=== PATIENT | female | born 1960 | race Caucasian/White ===

== ENCOUNTER → 2016-06-06 | Outpatient (CLI) | payer OTHER ==
[~2016-06-06] MED LIST: ISOVUE-370 76% 100ML VIAL (Q9967) As Ordered ONE
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
== END ==
LOC: M RAD 08:03
PROVIDERS: ATTEND Physician Assistant Medical
DX: M25.551 Pain in right hip (principal); S32.810A Multiple fractures of pelvis with stable disruption of pelvic ring, initial encounter for closed fracture; X58.XXXA Exposure to other specified factors, initial encounter; Y92.89 Other specified places as the place of occurrence of the external cause; Y93.89 Activity, other specified; Y99.8 Other external cause status
CPT/HCPCS: 72193; Q9967

== ENCOUNTER 2016-10-05 15:16 | Emergency (ER) | payer MEDICAID, OTHER ==
[~2016-10-05] VITALS: Ht 162.6 cm; Wt 90.7 kg
[2016-10-05 15:16] VITALS: BP 148/86
[2016-10-05] MEDS ORDERED: HYDR-3719 (15:24)
[2016-10-05] MEDS ORDERED: OMEP40CA2 (15:24)
[2016-10-05] MEDS ORDERED: LYRI150C (15:24)
[2016-10-05] MEDS ORDERED: ROPI2TAB (15:24)
[2016-10-05] MEDS ORDERED: VITA50003 (15:24)
[2016-10-05] MEDS ORDERED: MULT1CHW39 PO (15:24)
[2016-10-05] MEDS ORDERED: TIZANIDINE (15:24)
[2016-10-05] MEDS ORDERED: ALEN70TA39 (15:24)
--- NOTE | 2016-10-06 09:49 | REP ---
RIGHT RIBS, PA CHEST ONLY: HISTORY: Pain. COMPARISON RIB SERIES: None. Comparison frontal view of the chest 09/15/2015. The accompanying frontal view of the chest shows no acute disease or significant change from the prior exam. There is no evidence of a pneumothorax. Four views of the right ribs shows no evidence of an acute fracture or destructive osseous lesion. IMPRESSION: Negative right rib series. Signed by Deo Sheets DO 10/06/2016 11:36 A
== END 2016-10-05 16:42 | disposition home or self-care (01) ==
LOC: M ED 15:47
DX: S29.012A Strain of muscle and tendon of back wall of thorax, initial encounter (principal); X58.XXXA Exposure to other specified factors, initial encounter; Y92.89 Other specified places as the place of occurrence of the external cause; Y93.89 Activity, other specified; Y99.8 Other external cause status; G89.29 Other chronic pain; K21.9 Gastro-esophageal reflux disease without esophagitis; Z98.84 Bariatric surgery status; Z79.899 Other long term (current) drug therapy; Z88.0 Allergy status to penicillin; Z88.2 Allergy status to sulfonamides; Z88.8 Allergy status to other drugs, medicaments and biological substances; Z91.040 Latex allergy status

== ENCOUNTER 2016-11-07 12:19 | Emergency (ER) | payer OTHER ==
[~2016-11-07] VITALS: Ht 162.6 cm; Wt 95.3 kg
[~2016-11-07 12:19] MED LIST changes: +ALEN70TA39; +HYDR-3719; -ISOVUE-370 76% 100ML VIAL (Q9967) As Ordered ONE; +LYRI150C; +MULT1CHW39 PO; +OMEP40CA2; +ROPI2TAB; +TIZANIDINE; +VITA50003
[2016-11-07 13:46] VITALS: BP 149/94
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
== END 2016-11-07 13:59 | disposition home or self-care (01) ==
LOC: M ED 12:40
DX: S90.112A Contusion of left great toe without damage to nail, initial encounter (principal); W22.09XA Striking against other stationary object, initial encounter; Y92.019 Unspecified place in single-family (private) house as the place of occurrence of the external cause; Y93.01 Activity, walking, marching and hiking; Y99.9 Unspecified external cause status; F17.200 Nicotine dependence, unspecified, uncomplicated; G25.81 Restless legs syndrome; M79.7 Fibromyalgia; Z98.84 Bariatric surgery status; Z90.79 Acquired absence of other genital organ(s); Z79.899 Other long term (current) drug therapy; Z88.0 Allergy status to penicillin; Z88.2 Allergy status to sulfonamides; Z88.6 Allergy status to analgesic agent; Z91.040 Latex allergy status

== ENCOUNTER 2016-11-18 15:01 | Emergency (ER) | payer OTHER ==
[~2016-11-18] VITALS: Ht 162.6 cm; Wt 102.2 kg
[~2016-11-18 15:01] MED LIST changes: +VITA1CAP40; -VITA50003
[2016-11-18] MEDS ORDERED: MORPHINE 2 MG/ML 1ML SYRINGE IV ONE (16:15)
[2016-11-18 16:42] LABS: BASO % 0.7 % (0.0-1.0); EOS # 0.1 K/mm3 (0.0-0.50); EOS % 2.3 % (0.0-3.0); LARGE UNSTAINED CELL # 0.1 K/mm3 (0.0-0.4); LARGE UNSTAINED CELL % 1.6 % (0.0-4.0); LYMPH # 1.7 K/mm3 (1.5-4.5); LYMPH % 30.5 % (24.0-44.0); MEAN CORPUSCULAR HEMOGLOBIN 31.2 pg (27.0-33.0); MEAN CORPUSCULAR HGB CONC 34.2 g/dl (32.0-36.5); MONO # 0.4 K/mm3 (0.0-0.8); MONO % 6.2 % (0.0-5.0); NEUTROPHILS # 3.4 K/mm3 (1.8-7.7); NEUTROPHILS % 58.7 % (36.0-66.0); PLATELET COUNT, AUTOMATED 254 k/mm3 (150-450); RED CELL DISTRIBUTION WIDTH 13.6 % (11.5-14.5); WHITE BLOOD COUNT 5.7 K/mm3 (4.0-10.0)
[2016-11-18 17:07] LABS: ALBUMIN/GLOBULIN RATIO 1.33 (1.00-1.93); ALKALINE PHOSPHATASE 80 U/L (45-117); ALT/SGPT 64 U/L (12-78); ANION GAP 5 MEQ/L (8-16); AST/SGOT 37 U/L (15-37); BILIRUBIN,DIRECT < 0.1 MG/DL (0.0-0.2); BILIRUBIN,TOTAL 0.3 MG/DL (0.2-1.0); BLOOD UREA NITROGEN 15 MG/DL (7-18); CALCIUM LEVEL 8.5 MG/DL (8.5-10.1); CARBON DIOXIDE LEVEL 29 MEQ/L (21-32); CHLORIDE LEVEL 106 MEQ/L (98-107); CREATININE FOR GFR 0.82 MG/DL (0.55-1.02); GLOMERULAR FILTRATION RATE > 60.0 (>51); GLUCOSE, FASTING 125 MG/DL (70-105); SODIUM LEVEL 140 MEQ/L (136-145)
[2016-11-18 17:36] VITALS: BP 167/89
--- NOTE | 2016-11-19 07:49 | REP ---
THORACIC SPINE SERIES: Three views. HISTORY: Mid back pain. Comparison study June 24, 2015. FINDINGS: Thoracic vertebral body heights are maintained and unchanged when compared with the 06/24/2015 study. There is degenerative discogenic spurring at several mid thoracic levels as well as in the lower thoracic spine. Swimmer's lateral view shows no additional abnormality. Pedicles and posterior elements appear intact. No paravertebral soft-tissue mass is seen. IMPRESSION: Degenerative disc changes. Findings stable from June 24, 2015. No acute abnormality. Signed by Red Fu MD 11/19/2016 08:28 A
== END 2016-11-18 17:37 | disposition home or self-care (01) ==
LOC: M ED 16:38
DX: M51.34 Other intervertebral disc degeneration, thoracic region (principal); R60.9 Edema, unspecified; G89.29 Other chronic pain; M79.7 Fibromyalgia; E66.9 Obesity, unspecified; Z98.84 Bariatric surgery status; Z79.899 Other long term (current) drug therapy; Z88.0 Allergy status to penicillin; Z88.2 Allergy status to sulfonamides; Z88.6 Allergy status to analgesic agent; Z91.040 Latex allergy status

== ENCOUNTER → 2017-03-22 | Outpatient (REF) | payer MEDICAID ==
[2017-03-22 11:48] LABS: BASO % 0.6 % (0.0-1.0); EOS # 0.1 10^3/uL (0.0-0.50); EOS % 1.7 % (0.0-3.0); IMMATURE GRANULOCYTE % 0.4 % (0-0); LYMPH # 2.1 10^3/uL (1.5-4.5); LYMPH % 39.8 % (24.0-44.0); MEAN CORPUSCULAR HEMOGLOBIN 29.7 pg (27.0-33.0); MEAN CORPUSCULAR HGB CONC 33.1 g/dl (32.0-36.5); MEAN CORPUSCULAR VOLUME 89.7 fl (80.0-96.0); MONO # 0.3 10^3/uL (0.0-0.8); MONO % 6.3 % (0.0-5.0); NEUTROPHILS # 2.7 10^3/uL (1.8-7.7); NEUTROPHILS % 51.2 % (36.0-66.0); PLATELET COUNT, AUTOMATED 249 10^3/uL (150-450); RED CELL DISTRIBUTION WIDTH 13.9 % (11.5-14.5); WHITE BLOOD COUNT 5.2 10^3/uL (4.0-10.0)
[2017-03-22 12:38] LABS: FOLATE 6.8 NG/ML (>5.4)
[2017-03-22 13:14] LABS: FREE T4 0.82 NG/DL (0.76-1.46); MAGNESIUM LEVEL 2.4 MG/DL (1.8-2.4)
[2017-03-27 08:07] LABS: VITAMIN E LEVEL 12.2 mg/L (5.3-16.8)
== END ==
LOC: M SFHCPLAZ 09:35
PROVIDERS: ATTEND Family Medicine
DX: G25.81 Restless legs syndrome (principal); Z98.890 Other specified postprocedural states

== ENCOUNTER → 2017-05-15 | Outpatient (REF) | payer OTHER | LOC: M SFHCPLAZ 12:37 | PROVIDERS: ATTEND Family Medicine | DX: R10.13 Epigastric pain (principal) ==

== ENCOUNTER → 2017-09-02 | Outpatient (REF) | payer OTHER ==
[2017-09-02 13:51] LABS: ANION GAP 6 MEQ/L (8-16); BLOOD UREA NITROGEN 19 MG/DL (7-18); CALCIUM LEVEL 8.6 MG/DL (8.5-10.1); CARBON DIOXIDE LEVEL 30 MEQ/L (21-32); CHLORIDE LEVEL 106 MEQ/L (98-107); CHOLESTEROL LEVEL 215 MG/DL (<200); CHOLESTEROL RISK RATIO 1.837 (<5); GLOMERULAR FILTRATION RATE > 60.0 (>51); GLUCOSE, FASTING 88 MG/DL (70-100); HDL CHOLESTEROL 117 MG/DL (>40); NON-HDL-C 98 MG/DL; POTASSIUM SERUM 4.7 MEQ/L (3.5-5.1); SODIUM LEVEL 142 MEQ/L (136-145); TRIGLYCERIDES LEVEL 45 MG/DL (<150)
[2017-09-02 13:52] LABS: ESTIMATED AVERAGE GLUCOSE 117 MG/DL (60-110); HEMOGLOBIN A1c 5.7 %
== END ==
LOC: M SFHCPLAZ 10:44
DX: Z13.1 Encounter for screening for diabetes mellitus (principal); Z82.3 Family history of stroke; R03.0 Elevated blood-pressure reading, without diagnosis of hypertension
CPT/HCPCS: 83036

== ENCOUNTER → 2018-04-04 | Outpatient (CLI) | payer OTHER, MEDICAID | LOC: M ADAMS 08:36 | DX: M54.81 Occipital neuralgia (principal) | CPT/HCPCS: 72040 ==

== ENCOUNTER → 2018-07-01 | Outpatient (REF) | payer BC ==
[~2018-07-01] MED LIST changes: -ALEN70TA39; +ALEN70TA57; -VITA1CAP40; +VITA50005
== END ==
LOC: M LABNEURO 13:49
PROVIDERS: ATTEND Physician Assistant Medical
DX: M35.3 Polymyalgia rheumatica (principal)

== ENCOUNTER → 2018-11-26 | Outpatient (REF) | payer BC, MEDICAID, OTHER ==
[~2018-11-26] MED LIST changes: -ALEN70TA57; +ALEN70TA74; -MULT1CHW39 PO; +MULT200T7 PO
== END ==
LOC: M SFHCPLAZ 15:42
PROVIDERS: ATTEND Family Medicine
DX: L98.9 Disorder of the skin and subcutaneous tissue, unspecified (principal)

== ENCOUNTER → 2018-12-29 | Outpatient (CLI) | payer BC, MEDICAID, OTHER ==
--- NOTE | 2018-12-29 10:34 | REP ---
Clinical: Left ankle swelling. No history of trauma. Technique: AP, lateral, bilateral oblique views of the left ankle. Findings: Age-related osteodystrophy is appreciated. Moderate to significant anterolateral swelling noted. No acute fracture dislocation identified. Impression: Significant anterolateral soft tissue swelling. Consider the possibility of cellulitis. No acute fracture identified. Electronically Signed by Anderson Mendoza MD 12/29/2018 10:25 A
== END ==
LOC: M ADAMS 10:06
PROVIDERS: ATTEND Family Medicine
DX: M25.472 Effusion, left ankle (principal)

== ENCOUNTER → 2019-01-28 | Outpatient (REF) ==
--- NOTE | 2019-01-28 14:54 | REP ---
Right hip two-view : There is no fracture or dislocation. Mineralization and joint spaces are normal. There are no calcifications or foreign bodies. Impression: Negative right hip . Electronically Signed by Philip Mccain MD 01/28/2019 02:46 P
== END ==
LOC: M SMT 12:05
PROVIDERS: ATTEND Internal Medicine
DX: Z02.71 Encounter for disability determination (principal)

== ENCOUNTER → 2019-02-09 | Outpatient (CLI) | payer OTHER ==
--- NOTE | 2019-02-19 11:29 | DEXA ---
AP SPINE L1 - L4 0.939 -2.1 -0.8 LT FEMUR TOTAL 0.874 -1.1 -0.1 LT NECK 0.796 -1.7 -0.5 RT FEMUR TOTAL 0.842 -1.3 -0.4 RT NECK 0.837 -1.4 -0.2 TOTAL BODY TOTAL OTHER COMMENTS: There is low bone density of the spine and hips. The increased density of the spine does represent a significant change. The increased density of the left hip does represent a significant change. The increased density of the right hip does represent a significant change. The density of the spine has increased 24.5% since the initial exam on 07/08/2013. The spine density has increased 10.0% since the most recent exam on 07/27/2015. The density of the left hip has increased 11.3% since the initial exam on 07/08/2013. The density of the left hip has increased 3.4% since the most recent exam on 07/27/2015. The density of the right hip has increased 10.6% since the initial exam on 07/08/2013. The density of the right hip has increased 3.3% since the most recent exam on 07/27/2015. FOLLOW-UP: Recommendation for the next bone density exam: 2 years. [place]
== END ==
LOC: M WHC 11:08
PROVIDERS: ATTEND Family Medicine
DX: M81.6 Localized osteoporosis [Lequesne] (principal)

== ENCOUNTER → 2019-02-23 | Outpatient (CLI) | payer OTHER ==
[~2019-02-23] MED LIST changes: -OMEP40CA2; +OMEP40CA97
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
== END ==
LOC: M PAIN 09:30
PROVIDERS: ATTEND Anesthesiology
DX: M79.18 Myalgia, other site (principal); M79.2 Neuralgia and neuritis, unspecified; M25.551 Pain in right hip; G25.81 Restless legs syndrome; Z81.0 Family history of intellectual disabilities; Z86.59 Personal history of other mental and behavioral disorders; Z98.84 Bariatric surgery status; E78.00 Pure hypercholesterolemia, unspecified; E55.9 Vitamin D deficiency, unspecified; G43.909 Migraine, unspecified, not intractable, without status migrainosus; Z87.891 Personal history of nicotine dependence; Z88.0 Allergy status to penicillin; Z88.2 Allergy status to sulfonamides; Z88.6 Allergy status to analgesic agent; Z91.011 Allergy to milk products; Z91.018 Allergy to other foods; Z91.013 Allergy to seafood; Z91.040 Latex allergy status; Z91.041 Radiographic dye allergy status; E66.01 Morbid (severe) obesity due to excess calories; Z68.41 Body mass index [BMI] 40.0-44.9, adult; Z79.899 Other long term (current) drug therapy

== ENCOUNTER → 2019-04-02 | Outpatient (CLI) | payer OTHER ==
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
== END ==
LOC: M PAIN 09:00
PROVIDERS: ATTEND Nurse Practitioner Family
DX: M79.12 Myalgia of auxiliary muscles, head and neck (principal); M79.18 Myalgia, other site; G25.81 Restless legs syndrome; Z86.59 Personal history of other mental and behavioral disorders; Z98.84 Bariatric surgery status; E78.00 Pure hypercholesterolemia, unspecified; E55.9 Vitamin D deficiency, unspecified; G43.909 Migraine, unspecified, not intractable, without status migrainosus; Z87.891 Personal history of nicotine dependence; Z88.0 Allergy status to penicillin; Z88.2 Allergy status to sulfonamides; Z88.6 Allergy status to analgesic agent; Z88.8 Allergy status to other drugs, medicaments and biological substances; Z91.011 Allergy to milk products; Z91.013 Allergy to seafood; Z91.018 Allergy to other foods; Z91.040 Latex allergy status; E66.01 Morbid (severe) obesity due to excess calories; Z68.41 Body mass index [BMI] 40.0-44.9, adult; Z79.899 Other long term (current) drug therapy

== ENCOUNTER → 2019-06-11 | Outpatient (CLI) | payer OTHER ==
[~2019-06-11] MED LIST changes: +BUPIVACAINE HCL 0.25% 30 ML VIAL As Ordered ONE; +NORCO, ANEXSIA 5/325MG TABLET (HYDROcodone/ACETAMINOPHEN) As Ordered ONE; +TRIAMCINOLONE ACETONIDE SUSP 40 MG/ML VIAL (J3301) As Ordered ONE
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
== END ==
LOC: M PAIN 09:45
PROVIDERS: ATTEND Anesthesiology
DX: M79.18 Myalgia, other site (principal)
CPT/HCPCS: 20552; J3301

== ENCOUNTER → 2019-08-17 | Outpatient (REF) | payer OTHER ==
[~2019-08-17] MED LIST changes: -BUPIVACAINE HCL 0.25% 30 ML VIAL As Ordered ONE; -NORCO, ANEXSIA 5/325MG TABLET (HYDROcodone/ACETAMINOPHEN) As Ordered ONE; -ROPI2TAB; +ROPI2TAB3; -TRIAMCINOLONE ACETONIDE SUSP 40 MG/ML VIAL (J3301) As Ordered ONE
[2019-08-17 12:03] LABS: ALBUMIN 3.7 GM/DL (3.2-5.2); ALT/SGPT 53 U/L (12-78); BILIRUBIN,TOTAL 0.4 MG/DL (0.2-1.0); BLOOD UREA NITROGEN 17 MG/DL (7-18); CARBON DIOXIDE LEVEL 32 MEQ/L (21-32); CHLORIDE LEVEL 104 MEQ/L (98-107); CHOLESTEROL LEVEL 202 MG/DL (<200); CHOLESTEROL RISK RATIO 2.244 (<5); CREATININE FOR GFR 0.84 MG/DL (0.55-1.30); FOLATE 10.2 NG/ML; FREE T4 0.91 NG/DL (0.76-1.46); GLOMERULAR FILTRATION RATE > 60.0 (>45); GLUCOSE, FASTING 110 MG/DL (70-100); HDL CHOLESTEROL 90 MG/DL (>40); LDL CHOLESTEROL 97 MG/DL (<100); NON-HDL-C 112 MG/DL; POTASSIUM SERUM 4.4 MEQ/L (3.5-5.1); SODIUM LEVEL 139 MEQ/L (136-145); TOTAL PROTEIN 7.2 GM/DL (6.4-8.2); TRIGLYCERIDES LEVEL 76 MG/DL (<150); VITAMIN B12 LEVEL 623 PG/ML
[2019-08-17 12:13] LABS: HEMOGLOBIN A1c 6.4 %
== END ==
LOC: M SFHCPLAZ 09:39
PROVIDERS: ATTEND Physician Assistant
DX: H53.2 Diplopia (principal); E66.9 Obesity, unspecified; E78.2 Mixed hyperlipidemia; Z98.84 Bariatric surgery status; Z68.34 Body mass index [BMI] 34.0-34.9, adult

== ENCOUNTER → 2019-08-25 | Outpatient (CLI) | payer OTHER ==
--- NOTE | 2019-08-25 10:34 | REPPI ---
Clinical: Upper respiratory tract symptoms . Comparison: 09/15/2015 . Technique: PA and lateral. Findings: The mediastinum and cardiac silhouette are normal. The lung shelby demonstrate chronic interstitial changes without acute consolidation, effusion, or pneumothorax. The skeletal structures are intact and normal. Impression: 1. No acute cardiopulmonary process. Electronically Signed by Anderson Mendoza MD 08/25/2019 10:26 A
== END ==
LOC: M PLAIMG 10:13
PROVIDERS: ATTEND Family Medicine
DX: R09.89 Other specified symptoms and signs involving the circulatory and respiratory systems (principal)

== ENCOUNTER → 2019-09-03 | Outpatient (REF) | payer OTHER | LOC: M SFHCPLAZ 16:44 | DX: J10.1 Influenza due to other identified influenza virus with other respiratory manifestations (principal); Z11.59 Encounter for screening for other viral diseases; Z20.820 Contact with and (suspected) exposure to varicella | CPT/HCPCS: 87486; 87581; 87633; 87798; U0002 ==

== ENCOUNTER → 2019-09-04 | Outpatient (CLI) | payer OTHER ==
--- NOTE | 2019-09-04 10:47 | REPPI ---
Chest x-ray: Two views. History: Influenza B. Cough. Comparison study: August 25, 2019. Findings: The lungs are symmetrically aerated and clear. No infiltrate is seen. Pleural angles are sharp. Heart size is normal. There are degenerative changes in the thoracic spine and there is wedging in three adjacent mid thoracic vertebral bodies unchanged from the comparison study August 25, 2019. Pulmonary vasculature is not increased. Impression: No active cardiopulmonary disease. Electronically Signed by Red Fu MD 09/04/2019 10:02 A
== END ==
LOC: M PLAIMG 08:23
DX: J10.1 Influenza due to other identified influenza virus with other respiratory manifestations (principal)

== ENCOUNTER → 2019-12-18 | Outpatient (CLI) | payer OTHER ==
--- NOTE | 2019-12-18 09:29 | REPMRS ---
Patient History The patient states she had a clinical breast exam in November 2019. Patient is postmenopausal. Family history of breast cancer in mother. 3D TOMOSYNTHESIS WAS PERFORMED. [facility] lifetime risk for breast cancer is 9.4%. EFFIE Robbins. [facility] Screen Mammo: December 18, 2019 - Exam #: [id number] Bilateral CC and MLO view(s) were taken. Technologist: Nano Parsons Technologist FINDINGS: There are scattered fibroglandular densities. There has been no change in the appearance of the mammogram from the prior studies. There is a mild amount of residual fibroglandular tissue which is fairly symmetric. There is no interval development of dominant mass, architectural distortion, or clustered microcalcification suggestive of malignancy. Assessment: BI-RADS/ACR category 1 mammogram. Negative Mammogram. Recommendation Routine screening mammogram in 1 year (for women over age 40). This mammogram was interpreted with the aid of an FDA-approved computer-aided dectection system. Electronically Signed By: Philip Awan MD 12/18/19 0977
== END ==
LOC: M WHC 08:00
PROVIDERS: ATTEND Advanced Practice Midwife
DX: Z12.31 Encounter for screening mammogram for malignant neoplasm of breast (principal); Z78.0 Asymptomatic menopausal state; Z80.3 Family history of malignant neoplasm of breast

== ENCOUNTER → 2020-01-01 | Outpatient (CLI) | payer OTHER ==
--- NOTE | 2020-02-15 07:39 | SLEEPCENT ---
DATE: 01/01/2020 ORDERED BY: JUS Bee Nocturnal polysomnography was performed for evaluation of sleep physiology in this patient with nonrestorative sleep. Eight hours and 17 minutes of data were reviewed. There were 445.5 minutes of sleep identified. Sleep latency was prolonged at 20 minutes. REM latency was normal at 452 minutes. Sleep architecture showed fragmentation and very poor sleep progression. There was only one REM cycle late in the study. Overall sleep efficiency was 91.2%. The patient's electrocardiogram showed a sinus rhythm with an average heart rate 64 beats per minutes. EEG showed normal waveforms for awake and sleep. There were only 95 respiratory events identified of ten seconds in duration or greater for an apnea-hypopnea index of 12.8. The events were primarily obstructive and not exclusive to sleep stage nor body posture. Arousals from respiratory events occurred 10.5 times per hour. There was also frequent activity in the limb leads throughout the entire study. Limb movement arousal index was 17.9. IMPRESSION: * Obstructive sleep apnea (G47.33), apnea-hypopnea index 12.8. * Possible periodic limb movement disorder (G47.61), limb movement arousal index 17.9. RECOMMENDATIONS: The patient should be encouraged to return to [facility] for [facility]. In the interim, alcohol and sedative avoidance should be practiced and caution exercised during the operation of motor vehicles Pending response to pressure therapy, interventions to reduce the frequency of arousal from limb activity may also be helpful. /htsru cc: ANNA MARIE Davies
== END ==
LOC: M SLEEP 20:00
PROVIDERS: ATTEND Nurse Practitioner Family
DX: G47.33 Obstructive sleep apnea (adult) (pediatric) (principal)

== ENCOUNTER → 2021-08-28 | Outpatient (CLI) | payer OTHER ==
[~2021-08-28] MED LIST changes: -ALEN70TA74; +ALEN70TA82; +OMEP40CA4; -OMEP40CA97
[2021-08-28 13:43] LABS: ALBUMIN 3.9 GM/DL (3.2-5.2); ALT/SGPT 41 U/L (12-78); BILIRUBIN,TOTAL 0.3 MG/DL (0.2-1.0); BLOOD UREA NITROGEN 18 MG/DL (7-18); C REACTIVE PROTEIN QUANTITATIV 0.47 MG/DL (0.00-0.30); CALCIUM LEVEL 8.8 MG/DL (8.8-10.2); CARBON DIOXIDE LEVEL 30 MEQ/L (21-32); CHLORIDE LEVEL 107 MEQ/L (98-107); CHOLESTEROL LEVEL 183 MG/DL (<200); CHOLESTEROL RISK RATIO 2.407 (<5); CREATININE FOR GFR 0.88 MG/DL (0.55-1.30); FERRITIN 27 NG/ML (8-252); FREE T4 0.81 NG/DL (0.76-1.46); GLOMERULAR FILTRATION RATE > 60.0 (>45); GLUCOSE, FASTING 89 MG/DL (70-100); HDL CHOLESTEROL 76 MG/DL (>40); LDL CHOLESTEROL 94 MG/DL (<100); NON-HDL-C 107 MG/DL; POTASSIUM SERUM 3.8 MEQ/L (3.5-5.1); SODIUM LEVEL 140 MEQ/L (136-145); TOTAL PROTEIN 6.9 GM/DL (6.4-8.2); TRIGLYCERIDES LEVEL 64 MG/DL (<150)
[2021-08-28 13:44] LABS: HEMATOCRIT 39.4 % (36.0-47.0); MEAN CORPUSCULAR HEMOGLOBIN 29.3 pg (27.0-33.0); MEAN CORPUSCULAR VOLUME 88.9 fl (80.0-96.0); PLATELET COUNT, AUTOMATED 250 10^3/uL (150-450); RED BLOOD COUNT 4.43 10^6/uL (4.00-5.40); WHITE BLOOD COUNT 8.3 10^3/uL (4.0-10.0)
[2021-08-28 13:45] LABS: TOTAL 25(OH) VITAMIN D 25.6 NG/ML (30.0-100.0); VITAMIN B12 LEVEL 464 PG/ML (247-911)
[2021-08-28 14:11] LABS: MALB URINE SIEMENS 17.5 MG/L; MAU/CREAT RATIO 6.6 MCG/MG (0.0-30.0)
== END ==
LOC: M PLALAB 09:27
PROVIDERS: ATTEND Internal Medicine Hematology
DX: M79.7 Fibromyalgia (principal)

== ENCOUNTER → 2021-10-06 | Outpatient (REF) | payer OTHER | LOC: M SFHCPLAZ 12:49 | PROVIDERS: ATTEND Physician Assistant | DX: R05.9 Cough, unspecified (principal) ==

== ENCOUNTER 2021-10-22 12:34 | Emergency (ER) | payer OTHER ==
[~2021-10-22] VITALS: Ht 160 cm; Wt 105.0 kg
[2021-10-22] MEDS ORDERED: MONT10TA97 (12:50)
[2021-10-22] MEDS ORDERED: VENL75CA47 (12:50)
[2021-10-22] MEDS ORDERED: PREG150C (12:50)
[2021-10-22 14:03] LABS: BASO % 0.2 % (0.0-1.0); EOS # 0.1 10^3/uL (0.0-0.5); EOS % 1.9 % (0.0-3.0); HEMATOCRIT 39.8 % (36.0-47.0); HEMOGLOBIN 12.8 g/dl (12.0-15.5); LYMPH # 1.3 10^3/uL (1.5-5.0); LYMPH % 31.6 % (24.0-44.0); MEAN CORPUSCULAR HEMOGLOBIN 29.2 pg (27.0-33.0); MEAN CORPUSCULAR HGB CONC 32.2 g/dl (32.0-36.5); MEAN CORPUSCULAR VOLUME 90.7 fl (80.0-96.0); MONO # 0.6 10^3/uL (0.0-0.8); MONO % 13.8 % (2.0-8.0); NEUTROPHILS # 2.2 10^3/uL (1.5-8.5); NEUTROPHILS % 51.3 % (36.0-66.0); PLATELET COUNT, AUTOMATED 202 10^3/uL (150-450); RED BLOOD COUNT 4.39 10^6/uL (4.00-5.40); WHITE BLOOD COUNT 4.2 10^3/uL (4.0-10.0)
[2021-10-22 14:15] LABS: INR 0.9; PROTHROMBIN TIME 12.5 SECONDS (12.7-14.5)
[2021-10-22 14:16] LABS: PARTIAL THROMBOPLASTIN TIME 31.5 SECONDS (25.9-37.0)
[2021-10-22 14:29] LABS: ALBUMIN 3.4 GM/DL (3.2-5.2); ALT/SGPT 30 U/L (12-78); BILIRUBIN,DIRECT < 0.1 MG/DL (0.0-0.2); BILIRUBIN,TOTAL 0.3 MG/DL (0.2-1.0); BLOOD UREA NITROGEN 10 MG/DL (7-18); C REACTIVE PROTEIN QUANTITATIV 0.77 MG/DL (0.00-0.30); CALCIUM LEVEL 8.1 MG/DL (8.8-10.2); CARBON DIOXIDE LEVEL 28 MEQ/L (21-32); CHLORIDE LEVEL 109 MEQ/L (98-107); CK-MB VALUE MASS < 1.0 NG/ML (<3.6); CPK CREATINE PHOSPHOKINASE 72 U/L (26-192); FERRITIN 39 NG/ML (8-252); GLOMERULAR FILTRATION RATE > 60.0 (>45); GLUCOSE, FASTING 87 MG/DL (70-100); LDH LACTATE DEHYDROGENASE 199 U/L (84-246); LIPASE 127 U/L (73-393); MAGNESIUM LEVEL 2.3 MG/DL (1.8-2.4); MB/CK RELATIVE INDEX 1.39 (< OR =4); POTASSIUM SERUM 4.3 MEQ/L (3.5-5.1); SODIUM LEVEL 139 MEQ/L (136-145); TOTAL PROTEIN 6.6 GM/DL (6.4-8.2)
[2021-10-22] MEDS ORDERED: NIRMATRELVIR/RITONAVIR CO-PACK (EMERGENCY USE AUTH) PO SCH ×2 (15:14→21:00)
[2021-10-22 15:40] VITALS: BP 148/72
== END 2021-10-22 16:25 | disposition home or self-care (01) ==
LOC: M ED 12:34
DX: U07.1 COVID-19 (principal); R07.89 Other chest pain; R06.02 Shortness of breath; I10 Essential (primary) hypertension; K21.9 Gastro-esophageal reflux disease without esophagitis; M79.7 Fibromyalgia; G25.81 Restless legs syndrome; Z79.899 Other long term (current) drug therapy; Z88.0 Allergy status to penicillin; Z88.2 Allergy status to sulfonamides; Z88.8 Allergy status to other drugs, medicaments and biological substances; Z91.040 Latex allergy status

== ENCOUNTER 2021-11-30 17:08 | Emergency (ER) | payer OTHER ==
[~2021-11-30] VITALS: Ht 162.6 cm; Wt 100.0 kg
[~2021-11-30 17:08] MED LIST changes: +MONT10TA97; +PREG150C; +VENL75CA47
[2021-11-30] MEDS: IBUPROFEN 800 MG TAB PO ONE (18:05)
[2021-11-30 18:11] LABS: RSV AMPLIFICATION NEGATIVE (NEGATIVE)
[2021-11-30] MEDS ORDERED: OSEL75CA PO (19:10)
[2021-11-30 19:43] VITALS: BP 108/55
== END 2021-11-30 19:58 | disposition home or self-care (01) ==
LOC: M ED 17:08
DX: J11.89 Influenza due to unidentified influenza virus with other manifestations (principal); U07.1 COVID-19; J44.9 Chronic obstructive pulmonary disease, unspecified; M79.7 Fibromyalgia; M51.9 Unspecified thoracic, thoracolumbar and lumbosacral intervertebral disc disorder; M81.0 Age-related osteoporosis without current pathological fracture; Z79.899 Other long term (current) drug therapy; Z88.0 Allergy status to penicillin; Z88.1 Allergy status to other antibiotic agents; Z88.2 Allergy status to sulfonamides; Z88.8 Allergy status to other drugs, medicaments and biological substances; Z91.040 Latex allergy status; Z91.013 Allergy to seafood

== ENCOUNTER → 2022-04-24 | Outpatient (CLI) | payer OTHER ==
[~2022-04-24] MED LIST changes: +OSEL75CA PO
== END ==
LOC: M RAD 11:00
PROVIDERS: ATTEND Physician Assistant Medical
DX: M25.532 Pain in left wrist (principal); Z91.81 History of falling

== ENCOUNTER → 2022-08-24 | Outpatient (REF) | payer OTHER | LOC: M LAB REF 16:07 | PROVIDERS: ATTEND Physician Assistant | DX: R50.9 Fever, unspecified (principal); R05.9 Cough, unspecified ==

== ENCOUNTER → 2022-08-27 | Outpatient (CLI) | payer OTHER ==
[2022-08-27 16:14] LABS: HEMATOCRIT 39.8 % (36.0-47.0); HEMOGLOBIN 12.5 g/dl (12.0-15.5); MEAN CORPUSCULAR HEMOGLOBIN 28.8 pg (27.0-33.0); MEAN CORPUSCULAR HGB CONC 31.4 g/dl (32.0-36.5); MEAN CORPUSCULAR VOLUME 91.7 fl (80.0-96.0); PLATELET COUNT, AUTOMATED 271 10^3/uL (150-450); RED BLOOD COUNT 4.34 10^6/uL (4.00-5.40); WHITE BLOOD COUNT 7.1 10^3/uL (4.0-10.0)
[2022-08-27 16:16] LABS: C REACTIVE PROTEIN QUANTITATIV < 0.40 MG/DL (<1.0)
[2022-08-27 16:22] LABS: ALBUMIN 3.7 G/DL (3.2-5.2); ALKALINE PHOSPHATASE 80 U/L (46-116); ALT/SGPT 18 U/L (7.0-40); AST/SGOT 15 U/L (<34); BILIRUBIN,TOTAL 0.2 MG/DL (0.3-1.2); BLOOD UREA NITROGEN 17 MG/DL (9-23); CALCIUM LEVEL 8.7 MG/DL (8.3-10.6); CARBON DIOXIDE LEVEL 31 MMOL/L (20-31); CHLORIDE LEVEL 105 MMOL/L (98-107); CHOLESTEROL LEVEL 177 MG/DL (<200); CHOLESTEROL RISK RATIO 2.19 (<5); CREATININE FOR GFR 0.64 MG/DL (0.55-1.30); FREE T4 0.87 NG/DL (0.89-1.76); GLOMERULAR FILTRATION RATE > 60.0 (>45); GLUCOSE, FASTING 70 MG/DL (74-106); HDL CHOLESTEROL 80.6 MG/DL (>40); NON-HDL-C 96.4 MG/DL; POTASSIUM SERUM 4.5 MMOL/L (3.5-5.1); SODIUM LEVEL 141 MMOL/L (136-145); THYROID STIMULATING HORMONE 3.762 uIU/ML (0.55-4.78); TOTAL 25(OH) VITAMIN D 29.6 NG/ML (20.0-100.0); TOTAL PROTEIN 6.6 G/DL (5.7-8.2); TRIGLYCERIDES LEVEL 87 MG/DL (<150); VITAMIN B12 LEVEL 233 PG/ML (211-911)
[2022-08-27 16:54] LABS: HEMOGLOBIN A1c 5.6 % (4.0-6.0)
[2022-08-27 17:00] LABS: ERYTHROCYTE SEDIMENTATION RATE 22 mm/hr (0-30)
[2022-08-27 17:49] LABS: CREATININE, URINE 62.4 MG/DL; MALB URINE SIEMENS < 3.0 MG/L; MAU/CREAT RATIO 4.8 MCG/MG (0.0-30.0)
== END ==
LOC: M PLALAB 14:22
PROVIDERS: ATTEND Internal Medicine Hematology
DX: E78.2 Mixed hyperlipidemia (principal)

== ENCOUNTER 2023-08-14 09:19 | Day surgery (SDC) | payer MEDICARE, OTHER ==
[~2023-08-14] VITALS: Ht 161.3 cm; Wt 110.8 kg
[~2023-08-14 09:19] MED LIST changes: +ALBU8.5H INH; +COMBAER6 INH; -MONT10TA97; +MONT10TA97 PO; +OMEP40CA4 PO; -PREG150C; +PREG150C2 PO; +ROPI1TAB73 PO; -ROPI2TAB3; +ROPI2TAB46; +TIZA10TA PO; +VENL150C43 PO
[2023-08-14] MEDS: NS 1,000 ML IV ONE (09:32)
[2023-08-14] MEDS ORDERED: propofoL 500 MG/50 ML VIAL As Ordered ONE (10:55)
[2023-08-14] MEDS ORDERED: LIDOCAINE 2% 100MG/5ML SDV (FOR ANES.) As Ordered ONE (10:55)
[2023-08-14 11:19] VITALS: TEMP 97.5
[2023-08-14 11:38] VITALS: BP 143/74; O2SAT 98
== END 2023-08-14 11:50 | disposition home or self-care (01) ==
LOC: M OPP 09:19
PROVIDERS: ATTEND Surgery
DX: Z12.11 Encounter for screening for malignant neoplasm of colon (principal); D12.2 Benign neoplasm of ascending colon; K64.0 First degree hemorrhoids; Z87.891 Personal history of nicotine dependence; Z98.84 Bariatric surgery status; Z79.51 Long term (current) use of inhaled steroids; Z79.891 Long term (current) use of opiate analgesic; Z79.899 Other long term (current) drug therapy; Z88.0 Allergy status to penicillin; Z88.2 Allergy status to sulfonamides; Z88.6 Allergy status to analgesic agent; Z91.013 Allergy to seafood; Z91.040 Latex allergy status; Z91.048 Other nonmedicinal substance allergy status

== ENCOUNTER → 2023-09-03 | Outpatient (CLI) | payer MEDICARE, OTHER | LOC: M SOG 07:50 | PROVIDERS: ATTEND Physician Assistant | DX: M79.645 Pain in left finger(s) (principal); M19.042 Primary osteoarthritis, left hand ==

== ENCOUNTER 2023-09-27 07:14 | Day surgery (SDC) | payer MEDICARE, OTHER ==
[~2023-09-27] VITALS: Ht 160 cm; Wt 113.7 kg
[2023-09-27] MEDS ORDERED: LIDOCAINE W/EPINEPHRINE 1% 20ML VIAL XX ONE (07:35)
[2023-09-27] MEDS ORDERED: SODIUM BICARBONATE 8.4% INJ 50MEQ 50ML VIAL XX ONE (07:35)
[2023-09-27] MEDS: BACITRACIN OINTMENT 30GM TUBE As Ordered ONE (08:45)
[2023-09-27 08:55] VITALS: BP 133/76; TEMP 97.6; O2SAT 94
== END 2023-09-27 09:15 | disposition home or self-care (01) ==
LOC: M SDC 07:14
PROVIDERS: ATTEND Orthopaedic Surgery Hand Surgery
DX: M65.332 Trigger finger, left middle finger (principal); E66.9 Obesity, unspecified; Z68.41 Body mass index [BMI] 40.0-44.9, adult; Z79.899 Other long term (current) drug therapy; Z88.0 Allergy status to penicillin; Z88.2 Allergy status to sulfonamides; Z88.6 Allergy status to analgesic agent; Z91.013 Allergy to seafood; Z91.040 Latex allergy status; Z91.09 Other allergy status, other than to drugs and biological substances; Z98.84 Bariatric surgery status

== ENCOUNTER → 2025-01-13 | Outpatient (REF) | payer MEDICARE ==
[~2025-01-13] MED LIST changes: +BUDE10.7; +D 50CAP3 PO; +FLUTISP; +GNP250TA9 PO; -MULT200T7 PO; +MULT200T9 PO; +POTA99CA2 PO
[2025-01-13 13:44] LABS: PLATELET COUNT, AUTOMATED 294 10^3/uL (150-450)
[2025-01-13 14:05] LABS: ESTIMATED AVERAGE GLUCOSE 120.0 MG/DL (60-110)
[2025-01-13 14:19] LABS: FREE T4 1.06 NG/DL (0.89-1.76); IRON (FE) 114.0 UG/DL (50-170)
[2025-01-13 14:20] LABS: ALT/SGPT 64.0 U/L (7.0-40); AST/SGOT 45.0 U/L (<34); CALCIUM LEVEL 9.0 MG/DL (8.3-10.6); CARBON DIOXIDE LEVEL 30.0 MMOL/L (20-31); CHLORIDE LEVEL 103.0 MMOL/L (98-107); CHOLESTEROL LEVEL 173.0 MG/DL (<200); CHOLESTEROL RISK RATIO 2.61 (<5); CREATININE FOR GFR 0.88 MG/DL (0.55-1.30); GLOMERULAR FILTRATION RATE 72.4 (>45); LDL CHOLESTEROL 88.1 MG/DL (<100); NON-HDL-C 106.9 MG/DL; PERCENT SATURATION 28.4 % (13.2-45.0); POTASSIUM SERUM 4.3 MMOL/L (3.5-5.1); SODIUM LEVEL 144.0 MMOL/L (136-145); TRIGLYCERIDES LEVEL 94.0 MG/DL (<150)
[2025-01-13 14:21] LABS: TOTAL 25(OH) VITAMIN D 43.8 NG/ML (20.0-100.0)
== END ==
LOC: M SFHCADAM 08:26
DX: Z13.0 Encounter for screening for diseases of the blood and blood-forming organs and certain disorders involving the immune mechanism (principal); Z13.1 Encounter for screening for diabetes mellitus; Z13.29 Encounter for screening for other suspected endocrine disorder; Z13.220 Encounter for screening for lipoid disorders; E55.9 Vitamin D deficiency, unspecified; M79.7 Fibromyalgia; U07.1 COVID-19; Z79.899 Other long term (current) drug therapy

== ENCOUNTER 2025-01-14 12:01 | Emergency (ER) | payer MEDICARE ==
[~2025-01-14] VITALS: Ht 160 cm; Wt 115.3 kg
[~2025-01-14 12:01] MED LIST changes: -BUDE10.7; -D 50CAP3 PO; -FLUTISP; -GNP250TA9 PO; -POTA99CA2 PO
[2025-01-14] MEDS ORDERED: D 50CAP3 PO (12:27)
[2025-01-14] MEDS ORDERED: POTA99CA2 PO (12:27)
[2025-01-14] MEDS ORDERED: BUDE10.7 (12:27)
[2025-01-14] MEDS ORDERED: FLUTISP (12:27)
[2025-01-14] MEDS ORDERED: GNP250TA9 PO (12:27)
[2025-01-14 13:05] LABS: BASO # 0.0 10^3/uL (0.0-0.2); BASO % 0.3 % (0.0-1.0); EOS # 0.0 10^3/uL (0.0-0.5); EOS % 0.3 % (0.0-3.0); LYMPH # 1.7 10^3/uL (1.5-5.0); LYMPH % 23.6 % (24.0-44.0); MONO # 0.5 10^3/uL (0.0-0.8); MONO % 7.0 % (2.0-8.0); NEUTROPHILS # 4.8 10^3/uL (1.5-8.5); NEUTROPHILS % 68.1 % (36.0-66.0); PLATELET COUNT, AUTOMATED 241 10^3/uL (150-450)
[2025-01-14 13:09] LABS: KETONE, URINE AUTO RFX 1+ mg/dL (NEGATIVE); MUCUS, URINE RFX SMALL (NEGATIVE); NITRITE, URINE AUTO RFX NEGATIVE (NEGATIVE); RBC, URINE AUTO RFX 1 /HPF (0-3); SQUAM EPITHELIAL CELL UR AURFX 0 /HPF (0-6); WBC, URINE AUTO RFX 3 /HPF (0-3)
[2025-01-14 13:18] LABS: LEUKOCYTE ESTERASE UR AUTO RFX 1+ (NEGATIVE)
[2025-01-14 13:21] LABS: ALT/SGPT 58.0 U/L (7.0-40); AST/SGOT 37.0 U/L (<34); CALCIUM LEVEL 8.9 MG/DL (8.3-10.6); CARBON DIOXIDE LEVEL 28.0 MMOL/L (20-31); CHLORIDE LEVEL 102.0 MMOL/L (98-107); CREATININE FOR GFR 0.81 MG/DL (0.55-1.30); GLOMERULAR FILTRATION RATE 80.0 (>45); POTASSIUM SERUM 4.2 MMOL/L (3.5-5.1); SODIUM LEVEL 140.0 MMOL/L (136-145)
[2025-01-14] MEDS ORDERED: ISOVUE-370 76% 100 ML VIAL As Ordered ONE (14:22)
[2025-01-14] MEDS: PANTOPRAZOLE 40MG VIAL IV ONE (17:09)
[2025-01-14 17:50] VITALS: BP 131/62; TEMP 98; O2SAT 97
== END 2025-01-14 17:51 | disposition home or self-care (01) ==
LOC: M ED 12:01
DX: R10.9 Unspecified abdominal pain (principal); J44.9 Chronic obstructive pulmonary disease, unspecified; F41.9 Anxiety disorder, unspecified; Z98.84 Bariatric surgery status
CPT/HCPCS: 74177; 80048; 80076; 81001; 83690; 85025; 87086; 96374; 99284; J2470; Q9967

== ENCOUNTER → 2025-01-21 | Outpatient (REF) | payer MEDICARE ==
[~2025-01-21] MED LIST changes: +BUDE10.7; +D 50CAP3 PO; +FLUTISP; +GNP250TA9 PO; +POTA99CA2 PO
== END ==
LOC: M SFHCPLAZ 13:11
DX: R10.13 Epigastric pain (principal); Z98.84 Bariatric surgery status; K92.1 Melena

== ENCOUNTER 2025-02-17 07:20 | Day surgery (SDC) | payer MEDICARE ==
[~2025-02-17] VITALS: Ht 161.9 cm; Wt 112.5 kg
[~2025-02-17 07:20] MED LIST changes: +OMEP40CA5; +SUCR1TAB56
[2025-02-17] MEDS ORDERED: LIDOCAINE 2% 100 MG/5 ML SDV (FOR ANES.) As Ordered ONE (08:18)
[2025-02-17 08:53] VITALS: TEMP 97.7
[2025-02-17 09:12] VITALS: BP 97/56; O2SAT 96
== END 2025-02-17 09:17 | disposition home or self-care (01) ==
LOC: M OPP 07:20
PROVIDERS: ATTEND Internal Medicine Gastroenterology
DX: Z12.11 Encounter for screening for malignant neoplasm of colon (principal); D12.6 Benign neoplasm of colon, unspecified; K57.30 Diverticulosis of large intestine without perforation or abscess without bleeding; K64.0 First degree hemorrhoids; R10.13 Epigastric pain; Z98.84 Bariatric surgery status; Z88.0 Allergy status to penicillin; Z88.2 Allergy status to sulfonamides; Z88.8 Allergy status to other drugs, medicaments and biological substances; Z91.040 Latex allergy status; Z91.013 Allergy to seafood; Z79.51 Long term (current) use of inhaled steroids; Z79.899 Other long term (current) drug therapy; J44.9 Chronic obstructive pulmonary disease, unspecified; Z87.891 Personal history of nicotine dependence

== ENCOUNTER → 2025-03-02 | Outpatient (CLI) | payer MEDICARE | LOC: M WHC 09:18 | DX: M81.0 Age-related osteoporosis without current pathological fracture (principal); Z12.31 Encounter for screening mammogram for malignant neoplasm of breast; R92.313 Mammographic fatty tissue density, bilateral breasts; M85.89 Other specified disorders of bone density and structure, multiple sites ==